=== PATIENT | female | born 1970 | race American Indian/Alaskan Native ===

== ENCOUNTER 2018-07-17 13:42 | Observation (INO) | payer BC ==
--- NOTE | 2018-07-17 14:46 | C.PDOC ---
History Of Present Illness 47 year old female presents to the ED for evaluation of near syncope and dyspnea on exertion for 1 week. In the ED she states I think I may need another transfusion, she states having a prior blood transfusion due to iron deficiency due to menorrhagia. Denies abdominal pain, chest pain, vision changes, and any other associated symptoms. Time Seen by Provider: 07/17/18 14:12 Chief Complaint (Nursing): Dizziness/Lightheaded History Per: Patient History/Exam Limitations: no limitations Onset/Duration Of Symptoms: Days (x1 week. ) Recent travel outside of the [place]: No Past Medical History Reviewed: Historical Data, Nursing Documentation, Vital Signs Vital Signs: Last Vital Signs Temp 97.5 F L 07/17/18 13:52 Pulse 94 H 07/17/18 13:52 Resp 18 07/17/18 13:52 BP 127/84 07/17/18 13:52 Pulse Ox 100 07/17/18 13:52 - Medical History PMH: Anemia Family History: States: Unknown Family Hx - Social History Hx Alcohol Use: No Hx Substance Use: No Review Of Systems Except As Marked, All Systems Reviewed And Found Negative. Eyes: Negative for: Vision Change Cardiovascular: Negative for: Chest Pain Respiratory: Positive for: Other ((+) dyspnea on exertion. ) Gastrointestinal: Negative for: Abdominal Pain Neurological: Positive for: Other ((+) near syncope. ) Physical Exam - Physical Exam Appears: Non-toxic, No Acute Distress Skin: Warm, Dry Head: Atraumatic, Normacephalic Eye(s): bilateral: Normal Inspection, Conjunctiva Pale ((-) pallor conjuctiva. ) Oral Mucosa: Moist Neck: Normal ROM Chest: Symmetrical Respiratory: Normal Breath Sounds, No Rales, No Rhonchi, No Wheezing, No Other (NARD) Gastrointestinal/Abdominal: Normal Exam, Soft, No Tenderness Extremity: Bilateral: Atraumatic, Normal Color And Temperature Neurological/Psych: Oriented x3, Normal Speech, Normal Cognition ED Course And Treatment - Laboratory Results Result Diagrams: 07/17/18 15:00 07/17/18 15:00 ECG: Interpreted By Me, Viewed By Me Rate From EC O2 Sat by Pulse Oximetry: 100 (RA) Pulse Ox Interpretation: Normal Progress - Re-Evaluation Re-evaluation Note: 07/17/18 17:15 REFERRED FOR ADMISSION PER PMD 07/17/18 17:21 D/W DR GONZALEZ - Data Reviewed Data Reviewed: Lab, Diagnostic imaging, EKG, Old records Medical Decision Making Medical Decision Making: Initial plan: -Blood sent. -EKG -CXR Progress/Update: 5:22pm : Spoke with Dr. Roach Regarding the patients case. Disposition Counseled Patient/Family Regarding: Studies Performed, Diagnosis - Disposition Disposition: HOSPITALIZED Disposition Time: 15:37 Condition: STABLE - POA Present On Arrival: None - Clinical Impression Clinical Impression: Symptomatic anemia - Scribe Statement The provider has reviewed the documentation as recorded by the Scribe (Felicita Douglass) Provider Attestation: All medical record entries made by the Scribe were at my direction and personally dictated by me. I have reviewed the chart and agree that the record accurately reflects my personal performance of the history, physical exam, m edical decision making, and the department course for this patient. I have also personally directed, reviewed, and agree with the discharge instructions and disposition.
[2018-07-17 15:09] LABS: EOS # 0.1 K/uL (0.0-0.7); MONO # 0.5 K/uL (0.0-0.8)
[2018-07-17 15:29] LABS: BASO % 0.6 % (0.0-2.0); EOS % 1.6 % (0.0-4.0); LYMPH # 1.5 K/uL (1.0-4.3); LYMPH % 26.2 % (20.0-40.0); MEAN CELL VOLUME 62.1 fL (81.0-99.0); MONO % 8.1 % (0.0-10.0); NEUT # 3.6 K/uL (1.8-7.0); NEUT % 63.5 % (50.0-75.0); NRBC % 0.1 % (0.0-2.0); RBC 4.69 Mil/uL (3.80-5.20); RED CELL DISTRIBUTION WIDTH 19.2 % (11.5-14.5); WHITE BLOOD COUNT 5.7 K/uL (4.8-10.8)
[2018-07-17 15:31] LABS: HEMOGLOBIN 8.4 g/dL (11.0-16.0)
[2018-07-17 15:34] LABS: BLOOD UREA NITROGEN 12 mg/dL (7-17); CALCIUM 9.3 mg/dl (8.6-10.4); GFR NON-AFRICAN AMERICAN > 60
--- NOTE | 2018-07-17 23:30 | CP.PCM.HP ---
History of Present Illness - History of Present Illness History of Present Illness: 47 yo. lady with Pmh NIDDM Chronic anemia getting IV iron infusion as needee Hypertension admitted due to feeling like passing out dizziness, with no gross bleeding , no coughno fever no abdominal pain Patient was sent to ER for further evaluation. In ER - H/h dropped to 8 and dus to the symptoms, patient was admitted for further management PMH as abov e Present on Admission - Present on Admission Any Indicators Present on Admission: No History of DVT/PE: No History of Uncontrolled Diabetes: No Urinary Catheter: No Decubitus Ulcer Present: No Review of Systems - Constitutional Constitutional: Other (dizziness, feeling of passing out ). absent: Fatigue, Fever - EENT Eyes: absent: Other Visual Disturbances Ears: absent: Ear Pain Nose/Mouth/Throat: absent: Nasal Congestion, Sore Throat - Breasts Breasts: absent: Pain - Cardiovascular Cardiovascular: absent: Chest Pain, Dyspnea, Dyspnea on Exertion, Rapid Heart Rate, Slow Heart Rate, Syncope (but feeling of pasing out , dizziness ) - Respiratory Respiratory: absent: Cough, Dyspnea on Exertion, Chest Congestion - Gastrointestinal Gastrointestinal: absent: Abdominal Pain, Change in Bowel Habits, Constipation, Diarrhea - Genitourinary Genitourinary: absent: Difficulty Urinating, Dysuria - Musculoskeletal Musculoskeletal: absent: Deformity, Muscle Cramps, Muscle Weakness - Integumentary Integumentary: absent: Bleeding Lesions, Skin Ulcer, Jaundice - Neurological Neurological: Dizziness. absent: Abnormal Gait, Abnormal Hearing, Abnormal Movements - Psychiatric Psychiatric: absent: Behavioral Changes, Confusion, Depression - Endocrine Endocrine: absent: Polydipsia, Polyphagia - Hematologic/Lymphatic Hematologic: absent: Easy Bleeding, Easy Bruising Past Patient History - Past Social History Smoking Status: Never Smoked - ENDOCRINE/METABOLIC Hx Diabetes Mellitus Type 2: Yes - HEMATOLOGICAL/ONCOLOGICAL Hx Anemia: Yes - PSYCHIATRIC Hx Substance Use: No - SURGICAL HISTORY Hx Section: Yes - ANESTHESIA Hx Anesthesia: Yes Hx Anesthesia Reactions: No Meds Allergies/Adverse Reactions: Allergies Allergy/AdvReac Type Severity Reaction Status Date / Time No Known Allergies Allergy Unverified 07/17/18 13:55 Physical Exam - Constitutional Appears: Other (came walking but looks quiet, reports dizziness, no nausea no vomiting but feeling of passing out ) - Head Exam Head Exam: ATRAUMATIC, NORMOCEPHALIC - Eye Exam Eye Exam: Normal appearance - ENT Exam ENT Exam: Mucous Membranes Moist - Neck Exam Neck exam: Positive for: Full Rom. Negative for: Tenderness - Respiratory Exam Respiratory Exam: Clear to Auscultation Bilateral, NORMAL BREATHING PATTERN - Cardiovascular Exam Cardiovascular Exam: REGULAR RHYTHM - GI/Abdominal Exam GI & Abdominal Exam: Normal Bowel Sounds, Soft. absent: Tenderness - Extremities Exam Extremities exam: Positive for: full ROM, pedal pulses present. Negative for: pedal edema - Neurological Exam Neurological exam: Alert, Normal Gait, Oriented x3, Reflexes Normal - Psychiatric Exam Psychiatric exam: Normal Affect, Normal Mood - Skin Skin Exam: Intact, Normal Color Results - Vital Signs Recent Vital Signs: Last Vital Signs Temp 98.6 F 07/17/18 17:30 Pulse 101 H 07/17/18 17:30 Resp 19 07/17/18 17:30 BP 118/60 07/17/18 17:30 Pulse Ox 100 07/17/18 18:53 - Labs Result Diagrams: 07/17/18 15:00 07/17/18 15:00 Labs: Laboratory Results - last 24 hr 07/17/18 07/17/18 07/17/18 15:00 15:00 15:01 WBC 5.7 RBC 4.69 Hgb 8.4 L Hct 29.1 L MCV 62.1 L MCH 18.0 L MCHC 29.0 L RDW 19.2 H Plt Count 283 MPV 9.0 Neut % (Auto) 63.5 Lymph % (Auto) 26.2 [place] % (Auto) 8.1 Eos % (Auto) 1.6 Baso % (Auto) 0.6 Neut # (Auto) 3.6 Lymph # (Auto) 1.5 [place] # (Auto) 0.5 Eos # (Auto) 0.1 Baso # (Auto) 0.0 Differential Comment Sodium 138 Potassium 3.8 Chloride 104 Carbon Dioxide 23 Anion Gap 14 BUN 12 Creatinine 0.5 L Est GFR ( Amer) > 60 Est GFR (Non-Af Amer) > 60 Random Glucose 91 Calcium 9.3 Blood Type A POSITIVE Antibody Screen Negative Assessment & Plan - Assessment and Plan (Free Text) Assessment: Patient with history of DM hypertension Anemia admitted due to symptomatic Anemia - used to get IV iron infusion but had missed follow ups- needed PRBC transfusion hence admission NIDDM2 - good control- will keep same meds Hypertension - controlled - will continue meds GI prophylaxis DVT prophylaxis no drug -SCD for now - Date & Time Date: 07/17/18 Time: 02:00
[2018-07-18 00:06] VITALS: RESP 20
[2018-07-18 07:47] VITALS: BP 98/61; PULSE 106; TEMP 98.1; O2SAT 99
[2018-07-18 08:28] LABS: HEMOGLOBIN 8.9 g/dL (11.0-16.0); MEAN CORPUSCULAR HEMOGLOBIN 20.1 pg (27.0-31.0); MEAN CORPUSCULAR HGB CONC 30.3 g/dL (33.0-37.0); MEAN PLATELET VOLUME 8.7 fL (7.2-11.7); RBC 4.44 Mil/uL (3.80-5.20); RED CELL DISTRIBUTION WIDTH 21.8 % (11.5-14.5); WHITE BLOOD COUNT 4.6 K/uL (4.8-10.8)
[2018-07-18 08:32] LABS: MEAN CELL VOLUME 66.2 fL (81.0-99.0)
--- NOTE | 2018-07-18 09:21 | CP.PCM.PN ---
Subjective - Date & Time of Evaluation Date of Evaluation: 07/18/18 Time of Evaluation: 09:10 - Subjective Subjective: chart review repeat labs noted went up to 8.9 BP low- repeated Patient seen felt better after one unit of PRBC smiling, good mood ready to go home walked the patient , asymptomatic , laughing Objective - Vital Signs/Intake and Output Vital Signs (last 24 hours): Temp Pulse Resp BP Pulse Ox 98.1 F 106 H 20 98/61 L 99 07/18/18 07:46 07/18/18 07:46 07/18/18 07:46 07/18/18 07:46 07/18/18 07:46 Intake and Output: 07/18/18 07/18/18 06:59 18:59 Intake Total 200 Balance 200 - Medications Medications: Current Medications Glimepiride (Amaryl) 2 mg PO DAILY HARIS Home Med (Dulaglutide [Trulicity]) 1.5 mg SC QWK HARIS Metformin HCl (Glucophage) 500 mg PO BRK HARIS Pantoprazole Sodium (Protonix Ec Tab) 40 mg PO DAILY HARIS Sitagliptin Phosphate (Januvia) 100 mg PO DAILY HARIS - Labs Labs: 07/18/18 08:05 07/17/18 15:00 - Constitutional Appears: Non-toxic, No Acute Distress - Head Exam Head Exam: ATRAUMATIC, NORMOCEPHALIC - Eye Exam Eye Exam: Normal appearance - ENT Exam ENT Exam: Mucous Membranes Moist - Respiratory Exam Respiratory Exam: Clear to Ausculation Bilateral, NORMAL BREATHING PATTERN. absent: Wheezes - Cardiovascular Exam Cardiovascular Exam: REGULAR RHYTHM - GI/Abdominal Exam GI & Abdominal Exam: Soft, Normal Bowel Sounds. absent: Tenderness - Extremities Exam Extremities Exam: Full ROM, Normal Capillary Refill, Normal Inspection. absent: Joint Swelling, Pedal Edema - Neurological Exam Neurological Exam: Alert, Awake, Normal Gait, Oriented x3 - Psychiatric Exam Psychiatric exam: Normal Affect, Normal Mood - Skin Skin Exam: Intact, Normal Color Assessment and Plan - Assessment and Plan (Free Text) Plan: [place] Patient with DM, Hypertension, Chronic Anemia who has her own Wagon Driver, who gets treated with Iron IV infusion - lost heme follow up, became symptomatif with low H/h, given a unit of PRBC and felt better wishes to go home she will follow up with her Heme Iron supplementation given DM controlled Hypetertensiuon repeated normal will send home today she has her regular appointment with me
[2018-07-18] MEDS ORDERED: Pantoprazole 40 mg EC Tab PO SCH (10:00)
--- NOTE | 2018-07-18 12:54 | RAD ---
Date of service: 07/17/2018 HISTORY: DIZZY COMPARISON: No prior. TECHNIQUE: Chest PA and lateral FINDINGS: LUNGS: No active pulmonary disease. PLEURA: No significant pleural effusion identified. No pneumothorax apparent. CARDIOVASCULAR: No aortic atherosclerotic calcification present. Normal cardiac size. No pulmonary vascular congestion. OSSEOUS STRUCTURES: No significant abnormalities. VISUALIZED UPPER ABDOMEN: Normal. OTHER FINDINGS: None. IMPRESSION: No active disease.
[2018-07-24] MEDS ORDERED: Home Med 1 UNIT (Dulaglutide [Trulicity] 1.5 MG) SC SCH (10:00)
== END 2018-07-18 11:10 | disposition home or self-care (01) ==
LOC: C.ER 13:42 → C.9E 15:37 → C.3T 17:44
PROVIDERS: ADMIT Internal Medicine; ATTEND Internal Medicine
DX: D64.9 Anemia, unspecified (principal); E11.9 Type 2 diabetes mellitus without complications; I10 Essential (primary) hypertension; Z79.84 Long term (current) use of oral hypoglycemic drugs; Z98.891 History of uterine scar from previous surgery
CPT/HCPCS: 36415; 36430; 71046; 80048; 82948; 85025; 85027; 86850; 86900; 86920; 93005; 99285; G0378; P9051